=== PATIENT | male | born 1945 | race Caucasian/White ===

== ENCOUNTER 2020-05-28 20:01 | Emergency (ER) | payer OTHER ==
[~2020-05-28] VITALS: Ht 182.9 cm; Wt 122.5 kg
[2020-05-28] MEDS ORDERED: PROTONIX40 M2 PO (20:22)
[2020-05-28] MEDS ORDERED: VITAMIN C500 M2 PO (20:23)
[2020-05-28] MEDS ORDERED: VITAMIN B12-FO1 EAC1 PO (20:23)
[2020-05-28] MEDS ORDERED: GINKGO BILOBA30 MG PO (20:24)
[2020-05-28] MEDS ORDERED: SUPER THERAVIT1 EACH PO (20:24)
[2020-05-28] MEDS ORDERED: FISH OIL 1,0001 EAC9 PO (20:24)
[2020-05-28] MEDS ORDERED: LIPITOR 20 MG T20 M1 PO (20:24)
[2020-05-28] MEDS ORDERED: BARIATRIC MV-I1 EACH PO (20:25)
[2020-05-28] MEDS ORDERED: CELEXA 10 MG TA10 M1 PO (20:25)
[2020-05-28] MEDS ORDERED: METOPROLOL SUC100 MG PO (20:25)
[2020-05-28] MEDS ORDERED: BACTRIM DS TAB1 EACH PO (22:05)
[2020-05-28] MEDS ORDERED: KEFLEX500 M1 PO (22:05)
[2020-05-28 22:37] VITALS: BP 154/65
== END 2020-05-28 22:37 | disposition home or self-care (01) ==
LOC: M.ERS 20:01
DX: S90.511A Abrasion, right ankle, initial encounter (principal); L08.9 Local infection of the skin and subcutaneous tissue, unspecified; L03.115 Cellulitis of right lower limb; I10 Essential (primary) hypertension; Z96.653 Presence of artificial knee joint, bilateral; Z96.642 Presence of left artificial hip joint; G47.30 Sleep apnea, unspecified; X50.9XXA Other and unspecified overexertion or strenuous movements or postures, initial encounter; Y93.89 Activity, other specified; Y92.89 Other specified places as the place of occurrence of the external cause; Y99.8 Other external cause status